=== PATIENT | male | born 1940 | race Caucasian/White ===

== ENCOUNTER 2024-05-05 06:54 | Day surgery (SDC) | payer MEDICARE ==
[~2024-05-05] VITALS: Ht 162.6 cm; Wt 65.0 kg
[~2024-05-05 06:54] MED LIST: BAYE81TA10 PO; LOSA25TA13 PO; LOVA40TA PO; PANT20TA6 PO; PHENYLEPHRINE 10% OPHTH SOL 5ML OD PRN; PRES10CA2 PO
[2024-05-05] MEDS ORDERED: fentaNYL 100 MCG/2 ML INJECTION As Ordered ONE (07:08)
[2024-05-05] MEDS: OFLOXACIN 0.3 % (OCUFLOX) OPTH SOL 5ML OD ONE (08:03)
[2024-05-05] MEDS: LIDOCAINE 3.5 % 1ML OPHTH TOPICAL GEL OU ONE (08:03)
[2024-05-05] MEDS: ATROPINE SULFATE 1% OPHTH SOLN 2ML BTL OD SCH (08:03)
[2024-05-05] MEDS: PHENYLEPHRINE 2.5% OPHTH SOL 2ML OD SCH (08:04)
[2024-05-05] MEDS: TROPICAMIDE 1% OPHTH SOLN 15ML OD SCH (08:04)
[2024-05-05] MEDS: LIDOCAINE 1% SDV 5ML VIAL As Ordered ONE (09:15)
[2024-05-05] MEDS: BSS IRRIG/VANCO(10MG)/TOBRA(5MG)/EPINEPH(1:1000-0.5CC)500ML BAG-ORONLY As Ordered ONE (09:16)
[2024-05-05] MEDS: CEFUROXIME 1MG/0.1ML INTRACAMERAL INJ As Ordered ONE (09:22)
[2024-05-05] MEDS: VISCOAT 40-30MG/ML 0.5ML SYRINGE As Ordered ONE (09:23)
[2024-05-05 09:30] VITALS: BP 134/72; TEMP 97.1; O2SAT 100
== END 2024-05-05 09:43 | disposition home or self-care (01) ==
LOC: M SDC 06:54
PROVIDERS: ATTEND Ophthalmology
DX: H25.11 Age-related nuclear cataract, right eye (principal); H57.03 Miosis; I10 Essential (primary) hypertension; E78.5 Hyperlipidemia, unspecified; K21.9 Gastro-esophageal reflux disease without esophagitis; Z79.82 Long term (current) use of aspirin; Z79.899 Other long term (current) drug therapy
CPT/HCPCS: 66982; J0697; J3010; V2632

== ENCOUNTER 2024-05-12 08:24 | Day surgery (SDC) | payer MEDICARE ==
[~2024-05-12] VITALS: Ht 162.6 cm; Wt 64.9 kg
[~2024-05-12 08:24] MED LIST changes: -PHENYLEPHRINE 10% OPHTH SOL 5ML OD PRN; +PHENYLEPHRINE 10% OPHTH SOL 5ML OS PRN
[2024-05-12] MEDS ORDERED: MIDAZOLAM INJ 2MG/2ML VIAL As Ordered ONE (08:27)
[2024-05-12] MEDS ORDERED: fentaNYL 100 MCG/2 ML INJECTION As Ordered ONE (08:27)
[2024-05-12] MEDS: PHENYLEPHRINE 2.5% OPHTH SOL 2ML OS SCH (10:17)
[2024-05-12] MEDS: LIDOCAINE 3.5 % 1ML OPHTH TOPICAL GEL OU ONE (10:17)
[2024-05-12] MEDS: OFLOXACIN 0.3 % (OCUFLOX) OPTH SOL 5ML OS ONE (10:17)
[2024-05-12] MEDS: ATROPINE SULFATE 1% OPHTH SOLN 2ML BTL OS SCH (10:17)
[2024-05-12] MEDS: TROPICAMIDE 1% OPHTH SOLN 15ML OS SCH (10:17)
[2024-05-12] MEDS ORDERED: GLYCOPYRROLATE INJ 0.2 MG/ML 2 ML VIAL As Ordered ONE (10:52)
[2024-05-12] MEDS: CEFUROXIME 1MG/0.1ML INTRACAMERAL INJ As Ordered ONE (11:07)
[2024-05-12] MEDS: LIDOCAINE 1% SDV 5ML VIAL As Ordered ONE (11:07)
[2024-05-12] MEDS: BSS IRRIG/VANCO(10MG)/TOBRA(5MG)/EPINEPH(1:1000-0.5CC)500ML BAG-ORONLY As Ordered ONE (11:07)
[2024-05-12 11:23] VITALS: BP 126/89; TEMP 98.1; O2SAT 96
== END 2024-05-12 11:37 | disposition home or self-care (01) ==
LOC: M SDC 08:24
PROVIDERS: ATTEND Ophthalmology
DX: H25.12 Age-related nuclear cataract, left eye (principal); I10 Essential (primary) hypertension; E78.00 Pure hypercholesterolemia, unspecified; K21.9 Gastro-esophageal reflux disease without esophagitis; Z79.899 Other long term (current) drug therapy; Z79.82 Long term (current) use of aspirin
CPT/HCPCS: 66984; J0697; J1596; J2250; J3010; V2632